=== PATIENT | male | born 1980 | race African-American/Black ===

== ENCOUNTER 2016-09-09 04:20 | Emergency (ER) | payer SELFPAY ==
[~2016-09-09] VITALS: Ht 185.4 cm; Wt 90.7 kg
[2016-09-09] MEDS ORDERED: LEVETIRACETAM (500MG) 1,000 MG in IV NS 0.9% 100 ML IV STA (04:24)
--- NOTE | 2016-09-09 04:24 | NUR ---
PT A/OX4 BREATHING EFFORTLESSLY ON ROOM AIR, PT GF STATES SHE WAS LYING IN BED WITH PT AND PT SAT UP AND STARTED TO SCREAM AND THEN STARTED HAVING A SIEZURE THATLAST 20 SECONDS, NO TRAUMA NOTED, PT IS POSTICAL, IV PLACED LABS DRAWN, GF AT BEDSIDE, MD AT BEDSIDE, PT ON MONITOR, WILL CONTINUE TO MONITOR.
[2016-09-09] MEDS ORDERED: ONDANSETRON HCL/PF 4 MG/2 ML VIAL ONE (04:25)
[2016-09-09] MEDS ORDERED: LEVETIRACETAM (500MG) 500 MG/5 ML VIAL IV ONE (04:25)
[2016-09-09] MEDS ORDERED: IV SET PRIMARY PUMP SET 1 EA INFUS.SET MC ONE (04:26)
[2016-09-09] MEDS ORDERED: IV NS 0.9% 1,000 ML ONE (04:26)
[2016-09-09] MEDS ORDERED: IV SET PRIMARY 1 EA INFUS.SET MC ONE (04:26)
[2016-09-09] MEDS ORDERED: IV NS 0.9% 100 ML IV ONE (04:27)
[2016-09-09] MEDS ORDERED: ONDANSETRON HCL/PF 4 MG/2 ML VIAL IV ONE (04:30)
[2016-09-09] MEDS ORDERED: IV NS 0.9% 1,000 ML BAG IV ONE (04:30)
[2016-09-09 04:34] LABS: BASOPHILS # (AUTO) 0.1 /CMM (0.0-0.2); BASOPHILS % (AUTO) 0.4 % (0.0-2.0); EOSINOPHILS # (AUTO) 0.4 /CMM (0.0-0.7); EOSINOPHILS % (AUTO) 3.1 % (0.0-6.0); HEMATOCRIT 47 % (39-51); HEMOGLOBIN 15.7 g/dL (13.5-17.5); LYMPHOCYTES # (AUTO) 3.6 /CMM (0.8-4.8); LYMPHOCYTES % (AUTO) 25.7 % (20.0-44.0); MEAN CORPUSCULAR HEMOGLOBIN 31 PG (26.0-33.0); MEAN CORPUSCULAR HGB CONC 34 g/dl (31.0-36.0); MEAN CORPUSCULAR VOLUME 91 fL (80-96); MONOCYTES # (AUTO) 1.5 /CMM (0.1-1.30); MONOCYTES % (AUTO) 10.6 % (2.0-12.0); NEUTROPHILS # (AUTO) 8.5 /CMM (1.8-8.9); NEUTROPHILS % (AUTO) 60.2 % (43.0-81.0); PLATELET COUNT (AUTO) 128 /CMM (150-450); RED BLOOD CELL COUNT(AUTO) 5.14 MIL/uL (4.5-6.0); WHITE BLOOD COUNT (AUTO) 14.1 K/uL (4.3-11.0)
--- NOTE | 2016-09-09 04:44 | NUR ---
PT BACK FROM CT
[2016-09-09 04:45] LABS: CALCIUM, SERUM 8.6 mg/dL (8.5-10.1); CARBON DIOXIDE 14 mmol/L (21-32); CHLORIDE 104 mmol/L (98-107); CREATININE 2.5 mg/dL (0.6-1.3); GLUCOSE 135 mg/dL (74-106); POTASSIUM 4.2 mmol/L (3.5-5.1); SODIUM SERUM 140 mmol/L (136-145); UREA NITROGEN, BLOOD 31 mg/dL (7-18)
[2016-09-09 04:55] LABS: ALANINE AMINOTRANSFERASE 36 U/L (12-78); ALBUMIN 3.7 g/dL (3.4-5.0); ALKALINE PHOSPHATASE 84 U/L (46-116); ASPARTATE AMINOTRANSFERASE 22 U/L (15-37); BILIRUBIN,DIRECT 0.1 mg/dL (0.0-0.2); BILIRUBIN,TOTAL 0.3 mg/dL (0.2-1.0); TOTAL PROTEIN, SERUM 8.2 g/dL (6.4-8.2)
[2016-09-09 04:56] LABS: ALCOHOL, BLOOD < 3 mg/dL (0-0)
[2016-09-09 05:25] LABS: PROTHROMBIN TIME 10.7 SECS (9.5-12.7)
--- NOTE | 2016-09-09 05:29 | NUR ---
PT WALKED WITH A STEADY GAIT TO THE BATHROOM, URINE SAMPLE OBTAINED AND SENT TO LAB MD MADE AWARE WILL CONTINUE TO MONITOR.
[2016-09-09 05:42] LABS: APPEARANCE,URINE CLEAR (CLEAR); BILIRUBIN,URINE NEGATIVE (NEGATIVE); BLOOD, URINE TRACE-INTA Ery/uL (NEGATIVE); COLOR,URINE YELLOW (YELLOW); KETONES,URINE NEGATIVE (NEGATIVE); LEUKOCYTE ESTERASE ,URINE NEGATIVE (NEGATIVE); NITRITE, URINE NEGATIVE (NEGATIVE); PROTEIN,URINE 2+ mg/dl (NEGATIVE); UGLUCOSE NEGATIVE (NEGATIVE); UROBILINOGEN,URINE 0.2 EU/dL (0.2)
[2016-09-09 05:48] LABS: BACTERIA,URINE None seen /HPF (None Seen); MUCUS,URINE Few /LPF (None Seen); RBC,URINE 0-2 /HPF (0-2); SQUAMOUS EPITHELIAL CELL,UR Rare /HPF (None Seen); WBC,URINE 0-2 /HPF (0-3)
--- NOTE | 2016-09-09 05:58 | NUR ---
Patient discharged to home in stable condition. Written and verbal after care instructions given. Patient verbalizes understanding of instruction.IV removed. Catheter intact and site benign. Pressure and 4x4 applied to site. No bleeding noted.
[2016-09-09 05:59] VITALS: BP 145/89
== END 2016-09-09 06:00 | disposition home or self-care (01) ==
LOC: ER 04:23
DX: R56.9 Unspecified convulsions (principal); N28.9 Disorder of kidney and ureter, unspecified; R79.1 Abnormal coagulation profile; I10 Essential (primary) hypertension; Z87.448 Personal history of other diseases of urinary system
CPT/HCPCS: 36415; 70450-TC; 80048-TC; 80076-TC; 80305; 81000-TC; 82550-TC; 85025-TC; 85730-TC; A4606; G0480; J1953; J2405; J7030; Z7610

== ENCOUNTER 2017-12-27 12:37 | Emergency (ER) | payer SELFPAY ==
[~2017-12-27] VITALS: Ht 188 cm; Wt 92.5 kg
--- NOTE | 2017-12-27 12:48 | NUR ---
PT REC'D TO ER VIA EMS PT WAS FOUND IN CAR HAVING SEIZURE VSS IV RT AC 18G IVP FLUSHES .MONITORS APPLIED BP UP . LABS DRAWNS SENT TO LAB UA SENT TO LAB AWAITING EVALUATION BY ER PROVIDER.
--- NOTE | 2017-12-27 12:51 | NUR ---
PT STATED OFF MEDS FOR ONE MONTH
--- NOTE | 2017-12-27 12:53 | NUR ---
PT STATED HE DID COCAINE
[2017-12-27] MEDS ORDERED: LORAZEPAM INJ 2 MG/ML VIAL IVP ONE (13:00)
[2017-12-27] MEDS ORDERED: IV NS 0.9% 1,000 ML BAG IV ONE (13:00)
[2017-12-27] MEDS ORDERED: LORAZEPAM INJ 2 MG/ML VIAL ONE (13:22)
[2017-12-27 13:34] LABS: EOSINOPHILS % (AUTO) 0.5 % (0.0-6.0); HEMATOCRIT 50 % (39-51); HEMOGLOBIN 16.3 g/dL (13.5-17.5); LYMPHOCYTES # (AUTO) 1.1 /CMM (0.8-4.8); MEAN CORPUSCULAR HGB CONC 33 g/dl (31.0-36.0); MEAN CORPUSCULAR VOLUME 91 fL (80-96); MONOCYTES # (AUTO) 0.5 /CMM (0.1-1.30); MONOCYTES % (AUTO) 5.5 % (2.0-12.0); NEUTROPHILS # (AUTO) 8.1 /CMM (1.8-8.9); PLATELET COUNT (AUTO) 132 /CMM (150-450); RDW COEFFICIENT OF VARIATION 14.5 (11.5-15.0); RED BLOOD CELL COUNT(AUTO) 5.48 MIL/uL (4.5-6.0); WHITE BLOOD COUNT (AUTO) 9.8 K/uL (4.3-11.0)
[2017-12-27 13:49] LABS: CALCIUM, SERUM 9.2 mg/dL (8.5-10.1); CREATININE 2.4 mg/dL (0.6-1.3); POTASSIUM 4.1 mmol/L (3.5-5.1)
[2017-12-27] MEDS ORDERED: IRBESARTAN (150MG) 150 MG TABLET PO STA (14:13)
--- NOTE | 2017-12-27 14:14 | NUR ---
PT SLEEPING FAMILY AT BEDISDE
[2017-12-27] MEDS ORDERED: LEVETIRACETAM (250 MG) 250 MG TABLET PO ONE ×2 (14:25→14:30)
--- NOTE | 2017-12-27 14:29 | NUR ---
CALLED DR CHRISTIN BENDER @ , LEFT A VOICEMAIL.
[2017-12-27] MEDS ORDERED: NIFEdipine XL 60 MG TAB PO ONE (14:30)
[2017-12-27] MEDS ORDERED: LOSARTAN POTASSIUM 25 MG TABLET ONE (14:40)
--- NOTE | 2017-12-27 14:44 | NUR ---
MEDS GIVEN PER MD ORDER
[2017-12-27] MEDS ORDERED: LOSARTAN POTASSIUM 25 MG TABLET PO ONE (15:00)
[2017-12-27] MEDS ORDERED: CLONIDINE HCL 0.1 MG TABLET ONE (15:53)
[2017-12-27] MEDS ORDERED: CLONIDINE HCL 0.1 MG TABLET PO ONE (16:00)
--- NOTE | 2017-12-27 16:00 | NUR ---
DR ZAMUDIO CALLED BACK ON THE PHONE WITH DR TORRES.
--- NOTE | 2017-12-27 16:14 | NUR ---
PT. VERBALIZED UNDERSTANDING OF AFTERCARE INSTRUCTIONS.IV removed. Catheter intact and site benign. Pressure and 4x4 applied to site. No bleeding noted.Patient discharged to home in stable condition. Written and verbal after care instructions given. Patient verbalizes understanding of instruction.
[2017-12-27 16:15] VITALS: BP 169/72
== END 2017-12-27 16:17 | disposition home or self-care (01) ==
LOC: ER 12:41
DX: S00.512A Abrasion of oral cavity, initial encounter (principal); R56.9 Unspecified convulsions; F14.90 Cocaine use, unspecified, uncomplicated; N28.9 Disorder of kidney and ureter, unspecified; I10 Essential (primary) hypertension; F10.10 Alcohol abuse, uncomplicated; R00.0 Tachycardia, unspecified; Y90.9 Presence of alcohol in blood, level not specified; Z60.2 Problems related to living alone; X58.XXXA Exposure to other specified factors, initial encounter; Y93.89 Activity, other specified; Y92.89 Other specified places as the place of occurrence of the external cause; Y99.8 Other external cause status
CPT/HCPCS: 36415; 80048; 85025; 93005; 96374; 99285; J2060; J7030

== ENCOUNTER 2018-06-05 21:32 | Emergency (ER) | payer SELFPAY ==
[~2018-06-05] VITALS: Ht 185.4 cm; Wt 88.5 kg
[2018-06-05] MEDS ORDERED: HYDROCODONE/APAP 5/325MG 1 EACH TABLET ONE (22:52)
[2018-06-05] MEDS ORDERED: HYDROCODONE/APAP 5/325MG 1 EACH TABLET PO ONE (23:00)
[2018-06-05 23:42] VITALS: BP 159/100
--- NOTE | 2018-06-05 23:43 | NUR ---
PT HYPERTENSIVE ON THE MONITOR. ER AWARE.
--- NOTE | 2018-06-05 23:49 | NUR ---
XRAY AT BEDSIDE.
--- NOTE | 2018-06-06 01:04 | NUR ---
CALLED [facility] SPOKE WITH [employer] [address] . THEY WILL BE SENDING A UNIT TO HIS HOME TO MAKE A REPORT.
--- NOTE | 2018-06-06 01:30 | NUR ---
Pt hypertensive on the monitor. ER Aware.
--- NOTE | 2018-06-06 01:36 | NUR ---
Patient discharged to home in stable condition. Written and verbal after care instructions given. Patient verbalizes understanding of instruction.
== END 2018-06-06 01:38 | disposition home or self-care (01) ==
LOC: ER 21:38
DX: M87.051 Idiopathic aseptic necrosis of right femur (principal); I10 Essential (primary) hypertension; Z60.2 Problems related to living alone; V09.9XXA Pedestrian injured in unspecified transport accident, initial encounter; Y93.89 Activity, other specified; Y92.89 Other specified places as the place of occurrence of the external cause; Y99.8 Other external cause status
CPT/HCPCS: 73502; 73551; 99283; A4606; 73552

== ENCOUNTER 2019-10-16 03:33 | Emergency (ER) | payer MEDICARE ==
[~2019-10-16] VITALS: Ht 185.4 cm; Wt 91.6 kg
--- NOTE | 2019-10-16 03:33 | NUR ---
BIBEMS C/O NONTRAUMATIC R SIDED BACK PAIN SINCE 00. "MY KIDNEY IS HURTING"; PT AWAKE ALERT, -SOB, NAD NOTED, VSS, PENDING MD MCEKON
[2019-10-16] MEDS ORDERED: ONDANSETRON 4 MG TAB.RAPDIS ONE (03:53)
[2019-10-16] MEDS ORDERED: ONDANSETRON HCL/PF 4 MG/2 ML VIAL IVP ONE (04:00)
[2019-10-16] MEDS ORDERED: ONDANSETRON 4 MG TAB.RAPDIS SL ONE (04:00)
[2019-10-16] MEDS ORDERED: IV NS 0.9% 1,000 ML BAG IV ONE (04:00)
[2019-10-16] MEDS ORDERED: KETOROLAC TROMETHAMINE INJ 30 MG/ML VIAL IV ONE (04:00)
[2019-10-16] MEDS ORDERED: KETOROLAC TROMETHAMINE INJ 30 MG/ML VIAL ONE (04:01)
[2019-10-16] MEDS ORDERED: ONDANSETRON HCL/PF 4 MG/2 ML VIAL ONE (04:01)
[2019-10-16 04:05] LABS: BASOPHILS # (AUTO) 0.1 /CMM (0.0-0.2); BASOPHILS % (AUTO) 0.5 % (0.0-2.0); EOSINOPHILS % (AUTO) 0.6 % (0.0-6.0); HEMATOCRIT 48 % (39-51); HEMOGLOBIN 15.8 g/dL (13.5-17.5); LYMPHOCYTES # (AUTO) 1.1 /CMM (0.8-4.8); LYMPHOCYTES % (AUTO) 9.9 % (20.0-44.0); MEAN CORPUSCULAR HGB CONC 33 g/dl (31.0-36.0); MEAN CORPUSCULAR VOLUME 89 fL (80-96); MONOCYTES # (AUTO) 1.1 /CMM (0.1-1.30); MONOCYTES % (AUTO) 9.3 % (2.0-12.0); NEUTROPHILS # (AUTO) 9.2 /CMM (1.8-8.9); NEUTROPHILS % (AUTO) 79.7 % (43.0-81.0); PLATELET COUNT (AUTO) 106 /CMM (150-450); RED BLOOD CELL COUNT(AUTO) 5.42 MIL/uL (4.5-6.0); WHITE BLOOD COUNT (AUTO) 11.6 K/uL (4.3-11.0)
[2019-10-16 04:37] LABS: ALBUMIN 3.3 g/dL (3.4-5.0); BILIRUBIN,DIRECT 0.1 mg/dL (0.0-0.2); BILIRUBIN,TOTAL 0.7 mg/dL (0.2-1.0); CALCIUM, SERUM 8.6 mg/dL (8.5-10.1); CREATININE 2.4 mg/dL (0.6-1.3); POTASSIUM 4.5 mmol/L (3.5-5.1); TOTAL PROTEIN, SERUM 7.7 g/dL (6.4-8.2)
[2019-10-16 05:21] LABS: APPEARANCE,URINE CLEAR (CLEAR); BILIRUBIN,URINE NEGATIVE (NEGATIVE); BLOOD, URINE SMALL Ery/uL (NEGATIVE); COLOR,URINE YELLOW (YELLOW); KETONES,URINE NEGATIVE (NEGATIVE); LEUKOCYTE ESTERASE ,URINE NEGATIVE (NEGATIVE); NITRITE, URINE NEGATIVE (NEGATIVE); PROTEIN,URINE >=300 mg/dl (NEGATIVE); UGLUCOSE NEGATIVE (NEGATIVE); UROBILINOGEN,URINE 0.2 EU/dL (0.2)
[2019-10-16 05:30] VITALS: BP 141/75
--- NOTE | 2019-10-16 05:40 | NUR ---
Patient discharged to home in stable condition. Written and verbal after care instructions given. Patient verbalizes understanding of instruction. IV removed. Catheter intact and site benign. Pressure and 4x4 applied to site. No bleeding noted.
== END 2019-10-16 05:42 | disposition home or self-care (01) ==
LOC: ER 03:34
DX: K52.9 Noninfective gastroenteritis and colitis, unspecified (principal); J18.9 Pneumonia, unspecified organism; I10 Essential (primary) hypertension; Z60.2 Problems related to living alone
CPT/HCPCS: 36415; 74176; 80048; 80076; 81001; 85025; 96361; 96374; 96375; 99284; J1885; J2405; J7030; Q0162; 81000-TC